=== PATIENT | female | born 1985 | race Caucasian/White ===

== ENCOUNTER 2017-02-06 07:51 | Emergency (ER) | payer OTHER ==
[2017-02-06 07:59] VITALS: BP 110/67; PULSE 73; TEMP 97.9; BMI 28.3
[2017-02-06] MEDS ORDERED: IBUPROFEN 600 MG TABLET (FP) PO ONE (08:15)
[2017-02-06] MEDS ORDERED: KETOROLAC TROMETHAMINE 60 MG/2 ML VIAL IM ONE (08:20)
[2017-02-06] MEDS ORDERED: CYCLOBENZAPRINE HCL 10 MG TABLET (FP) PO ONE (08:20)
--- NOTE | 2017-02-06 08:24 | PDOC ---
History of Present Illness - General Chief Complaint: Back Pain Stated Complaint: BACK PAIN Time Seen by Provider: 02/06/17 08:12 History Source: Patient Exam Limitations: No Limitations - History of Present Illness Initial Comments: 02/06/17 08:20 31-year-old female with no past medical history presents the ED with complaints of left upper back pain. Patient states 2 days ago awoke with the pain which she describes a sharp intermittent pain worsened with movement and deep breathing. Patient states took Motrin with no relief along with topical analgesics. Patient states no presented to the affected area, difficulty breathing, chest pain, shortness of breath, fever or chills. Patient also denies any radiation of pain, rash, or skin discoloration. Occurred: reports: other ( 2 days ago) Severity: reports: moderate Pain Location: reports: back Method of Injury: Yes: unknown Associated Symptoms (Fall): denies symptoms Past History - Travel Traveled outside of the country in the last 30 days: No Close contact w/someone who was outside of country & ill: No - Past Medical History Allergies/Adverse Reactions: Allergies Allergy/AdvReac Type Severity Reaction Status Date / Time No Known Allergies Allergy Verified 02/06/17 07:54 Home Medications: Ambulatory Orders NK [No Known Home Medication] 02/06/17 Asthma: Yes Cancer: No Cardiac Disorders: No Diabetes: No GI Disorders: Yes (gastritis) HTN: No Seizures: No Thyroid Disease: No - Reproductive History LMP Normal: Yes Is Patient Now?: No (#): 3 Para: 2 Therapeutic (s) & number: Yes Spontaneous : 1 - Psycho/Social/Smoking Cessation Hx Anxiety: No Suicidal Ideation: No Smoking Status: No Smoking History: Current every day smoker Have you smoked in the past 12 months: Yes Number of Cigarettes Smoked Daily: 1 Information on smoking cessation initiated: Yes 'Breaking Loose' booklet given: 02/06/17 Hx Alcohol Use: No Drug/Substance Use Hx: No Substance Use Type: None Hx Substance Use Treatment: No Patient Lives Alone: No Lives with/in: spouse/SO Trauma Specific PMHX - Complaint Specific PMHX Back Injury: No Review of Systems - Review of Systems Able to Perform ROS?: No Is the patient limited Chadian proficient: No Constitutional: No: Symptoms Reported Respiratory: No: Symptoms reported Cardiac (ROS): No: Symptoms Reported Musculoskeletal: Yes: Back Pain, Muscle Pain Integumentary: No: Symptoms Reported Neurological: No: Symptoms reported *Physical Exam - Vital Signs Last Vital Signs Temp Pulse Resp BP Pulse Ox 97.9 F 73 18 110/67 100 02/06/17 07:56 02/06/17 07:56 02/06/17 07:56 02/06/17 07:56 02/06/17 07:56 - Physical Exam General Appearance: Yes: Nourished, Appropriately Dressed. No: Apparent Distress Neck: positive: Supple. negative: Tender, Decreased range of motion Respiratory/Chest: positive: Lungs Clear, Normal Breath Sounds. negative: Chest Tender, Respiratory Distress, Accessory Muscle Use Cardiovascular: positive: Regular Rhythm, Regular Rate. negative: Murmur Musculoskeletal: positive: Muscle Spasm (left trapezius). negative: Vertebral Tenderness (no midline tenderness) Integumentary: positive: Normal Color, Warm, Moist Neurologic: positive: Normal Mood/Affect, Motor Strength 5/5 (ambulatory) Medical Decision Making - Medical Decision Making 02/06/17 08:23 Patient with left trapezius muscle spasm unrelieved with Motrin and topical analgesics. Patient with point tenderness to left trapezius. Patient ordered for Flexeril and Toradol IM. 02/06/17 09:22 Patient states minimal relief with medication. Patient will be given a prescription for Percocet and Flexeril for home. Patient also recommended supportive care. *DC/Admit/Observation/Transfer Diagnosis at time of Disposition: Trapezius muscle spasm - Discharge Dispostion Disposition: HOME Condition at time of disposition: Improved - Referrals Referrals: Jonathan Guevara MD [Primary Care Provider] - - Patient Instructions Printed Discharge Instructions: DI for Back Spasm Additional Instructions: Please continue to take medication as needed for discomfort. Apply heat to the affected area and avoid movements that trigger discomfort. If pain does not improve significantly over the next 3 days please consider returning to the ED or following up with her primary care physician.
[2017-02-06] MEDS ORDERED: KETOROLAC TROMETHAMINE 60 MG/2 ML VIAL ONE (08:26)
[2017-02-06] MEDS ORDERED: CYCLOBENZAPRINE HCL 10 MG TABLET (FP) ONE (08:26)
== END 2017-02-06 09:28 | disposition home or self-care (01) ==
LOC: JERFT 07:51
PROC: 3E0233Z Introduction of Anti-inflammatory into Muscle, Percutaneous Approach (ICD-10-PCS; principal; 2017-02-06)
DX: M62.830 Muscle spasm of back (principal); J45.909 Unspecified asthma, uncomplicated; F17.210 Nicotine dependence, cigarettes, uncomplicated
CPT/HCPCS: 96372; 99281-25

== ENCOUNTER 2017-02-07 18:15 | Emergency (ER) | payer OTHER ==
[2017-02-07 18:29] VITALS: BP 119/55; PULSE 72; TEMP 98.5; BMI 27.9
[2017-02-07] MEDS ORDERED: KETOROLAC TROMETHAMINE 60 MG/2 ML VIAL IM ONE (19:42)
[2017-02-07] MEDS ORDERED: KETOROLAC TROMETHAMINE 60 MG/2 ML VIAL ONE (19:44)
--- NOTE | 2017-02-07 19:47 | PDOC ---
History of Present Illness - General Chief Complaint: Pain Stated Complaint: BACK PAIN Time Seen by Provider: 02/07/17 19:35 History Source: Patient Exam Limitations: No Limitations - History of Present Illness Initial Comments: 02/07/17 19:46 31 yr female with 4 days pain to left upper back radiates to shoulder, worse with movement of her arm, worse with touch. no chest pain no sob. pt denies trauma, no recent travel, no surgery, immobilization. Pt lopez snot use any estrogenous control. no medical history. Past History - Past Medical History Allergies/Adverse Reactions: Allergies Allergy/AdvReac Type Severity Reaction Status Date / Time No Known Allergies Allergy Verified 02/07/17 18:26 Home Medications: Ambulatory Orders Cyclobenzaprine HCl [Flexeril 10 mg] 5 mg PO BID PRN #10 tablet 02/06/17 Oxycodone HCl/Acetaminophen [Percocet 5-325 mg Tablet] 1 - 2 tab PO Q6H PRN #10 tab MDD 4 02/06/17 Diazepam [Valium] 5 mg PO Q8H PRN #9 tablet MDD 15mg 02/07/17 Naproxen [Naprosyn -] 500 mg PO BID #14 tablet 02/07/17 Asthma: Yes Cancer: No Cardiac Disorders: No Diabetes: No GI Disorders: Yes (gastritis) HTN: No Seizures: No Thyroid Disease: No - Reproductive History (#): 3 Para: 2 Therapeutic (s) & number: Yes Spontaneous : 1 - Psycho/Social/Smoking Cessation Hx Anxiety: No Suicidal Ideation: No Smoking Status: No Smoking History: Never smoked Have you smoked in the past 12 months: Yes Number of Cigarettes Smoked Daily: 1 Information on smoking cessation initiated: Yes 'Breaking Loose' booklet given: 02/07/17 Hx Alcohol Use: No Drug/Substance Use Hx: No Substance Use Type: None Hx Substance Use Treatment: No *Physical Exam - Vital Signs Last Vital Signs Temp Pulse Resp BP Pulse Ox 98.5 F 72 18 119/55 100 02/07/17 18:26 02/07/17 18:26 02/07/17 18:26 02/07/17 18:26 02/07/17 18:26 - Physical Exam General Appearance: Yes: Nourished, Appropriately Dressed HEENT: positive: EOMI, LEXUS, Normal ENT Inspection, TMs Normal, Pharynx Normal Neck: positive: Supple. negative: Tender, Lymphadenopathy (R), Lymphadenopathy (L) Respiratory/Chest: positive: Lungs Clear, Normal Breath Sounds. negative: Chest Tender Cardiovascular: positive: Regular Rhythm, Regular Rate Gastrointestinal/Abdominal: positive: Normal Bowel Sounds, Soft Extremity: positive: Normal Capillary Refill, Normal Inspection, Other (left arm decreased ROM due to pain to the posteriro left shoulder at the trapezius muscle ) Integumentary: positive: Normal Color, Dry, Warm Neurologic: positive: Fully Oriented, Alert, Normal Mood/Affect, Normal Response , Motor Strength 10/22 Medical Decision Making - Medical Decision Making 02/07/17 19:43 cc: pain to the left upper back to shoulder for 4 days worse when sleeping worse with movement and to palpation pt seen in ER yesterday given toradol which pt states took pain away, then pain came back during the night. Pt denies chest pain no SOB no trouble breathing 02/07/17 19:44 Well's Criteria : 0.0 points Low risk group: 1.3% chance of PE in an ED population. Another study assigned scores = 4 as PE Unlikely and had a 3% incidence of PE. PERC ruke: 0 criteria No need for further workup, as <2% chance of PE. If no criteria are positive and clinicians pre-test probability is <15%, PERC Rule criteria are satisfied. Next Steps 02/07/17 20:50 CXR is negative pt is seeing her PMD tomorrow . will dc home with valium stop flexeril, naprosyn for pain stop percocet as it is not helping pt. *DC/Admit/Observation/Transfer Diagnosis at time of Disposition: Trapezius muscle spasm - Discharge Dispostion Disposition: HOME Condition at time of disposition: Good - Prescriptions Prescriptions: Naproxen [Naprosyn -] 500 mg PO BID #14 tablet Diazepam [Valium] 5 mg PO Q8H PRN #9 tablet MDD 15mg PRN Reason: Muscle Spasms - Referrals Referrals: Jonathan Guevara MD [Primary Care Provider] - - Patient Instructions Additional Instructions: take Valium instead of flexeril, STOP THE FLEXERIL AND PERCOCET take the naprosyn as directed for pain apply warm heating pad, warm compresses topical muscle cream such as ICy Hot or Apsercream to the affected areas Make sure you are sleeping on a firm mattress and comfortable pillow as this can make pain worse avoid any texting or using computers follow with your doctor tomorrow as planned - Post Discharge Activity
== END 2017-02-07 21:17 | disposition home or self-care (01) ==
LOC: JERFT 18:15
PROC: 3E0233Z Introduction of Anti-inflammatory into Muscle, Percutaneous Approach (ICD-10-PCS; principal; 2017-02-07)
DX: M62.838 Other muscle spasm (principal)
CPT/HCPCS: 71020-TC; 96372; 99281-25

== ENCOUNTER 2018-04-06 10:19 | Emergency (ER) | payer OTHER ==
[2018-04-06 10:24] VITALS: BP 107/62; PULSE 63; TEMP 98.5; BMI 27.4
--- NOTE | 2018-04-06 11:19 | PDOC ---
History of Present Illness - General Chief Complaint: Sore Throat Stated Complaint: COUGH, SORE THROAT Time Seen by Provider: 04/06/18 11:09 History Source: Patient Exam Limitations: Clinical Condition - History of Present Illness Initial Comments: 04/06/18 11:19 Patient with no sig Past medical history present with complain of 2 days history of nasal congestion, sinus pain, headache, cough and throat discomfort. Denies pain for to swallow now. Denies fever, chills, nausea or vomiting Timing/Duration: other (2 days) Past History - Past Medical History Allergies/Adverse Reactions: Allergies Allergy/AdvReac Type Severity Reaction Status Date / Time No Known Allergies Allergy Verified 04/06/18 10:21 Home Medications: Ambulatory Orders Azithromycin [Zithromax Tri-Kimani (3 DAYS) -] 500 mg PO DAILY #3 tablet 04/06/18 Benzonatate [Tessalon Pearls -] 100 mg PO TID PRN #21 capsule 04/06/18 Ipratropium [place] 2 spray NS BID PRN #1 spray 04/06/18 Methylprednisolone [Medrol Dose Kimani] 4 mg PO ASDIR #21 tablet 04/06/18 Asthma: Yes Cancer: No Cardiac Disorders: No COPD: No Diabetes: No GI Disorders: Yes (gastritis) HTN: No Seizures: No Thyroid Disease: No - Reproductive History (#): 3 Para: 2 Therapeutic (s) & number: Yes Spontaneous : 1 - Immunization History Immunization Up to Date: Yes - Suicide/Smoking/Psychosocial Hx Smoking Status: No Smoking History: Current every day smoker Have you smoked in the past 12 months: Yes Number of Cigarettes Smoked Daily: 10 Information on smoking cessation initiated: No 'Breaking Loose' booklet given: 02/07/17 Hx Alcohol Use: No Drug/Substance Use Hx: No Substance Use Type: None Hx Substance Use Treatment: No Review of Systems - Review of Systems Able to Perform ROS?: Yes Is the patient limited Turkmen proficient: No Constitutional: No: Chills, Fever, Malaise HEENTM: Yes: Nose Congestion, Throat Pain. No: Eye Pain, Blurred Vision, Tearing, Recent change in vision, Double Vision, Cataracts, Ear Pain, Ocular Prothesis, Ear Discharge, Nose Pain, Tinnitus, Nose Bleeding, Hearing Loss, Throat Swelling, Mouth Pain, Dental Problems, Difficulty Swallowing, Mouth Swelling, Other Respiratory: Yes: Cough. No: Orthopnea, Shortness of Breath, SOB with Exertion , SOB at Rest, Stridor, Wheezing, Productive cough, Hemoptysis, Other Cardiac (ROS): No: Chest Pain, Edema, Irregular Heart Rate, Lightheadedness, Palpitations, Syncope, Chest Tightness, Other ABD/GI: No: Abdominal Distended, Abd. Pain w/ defecation, Blood Streaked Bowels , Constipated, Diarrhea, Difficulty Swallowing, Nausea, Poor Appetite, Poor Fluid Intake, Rectal Bleeding, Vomiting, Indigestion, Abdominal cramping, Tarry Stools, Other All Other Systems: Reviewed and Negative *Physical Exam - Vital Signs Last Vital Signs Temp Pulse Resp BP Pulse Ox 98.5 F 63 18 107/62 100 04/06/18 10:21 04/06/18 10:21 04/06/18 10:21 04/06/18 10:21 04/06/18 10:21 - Physical Exam Comments: 04/06/18 11:21 GENERAL: Well developed, well nourished. Awake and alert. No acute distress. HEENT: Normocephalic, atraumatic. PERRLA, EOMI. No conjunctival pallor. Sclera are non-icteric. Moist mucous membranes. Oropharynx is clear. NECK: Supple. Full ROM. CARDIOVASCULAR: Regular rate and rhythm. No murmurs, rubs, or gallops. Distal pulses are 2+ and symmetric. PULMONARY: No evidence of respiratory distress. Lungs clear to auscultation bilaterally. No wheezing, rales or rhonchi. ABDOMINAL: Soft. Non-tender. Non-distended. No rebound or guarding. No organomegaly. Normoactive bowel sounds. MUSCULOSKELETAL Normal range of motion at all joints. EXTREMITIES: No cyanosis. No clubbing. No edema. No calf tenderness. SKIN: Warm and dry. Normal capillary refill. No rashes. No jaundice. NEUROLOGICAL: Alert, awake, appropriate. Gait is normal without ataxia. PSYCHIATRIC: Cooperative. Good eye contact. Appropriate mood General Appearance: Yes: Nourished, Appropriately Dressed. No: Apparent Distress Medical Decision Making - Medical Decision Making 04/06/18 11:22 Patient with no sig past medical history present with complain of 2 day history of nonproductive cough, nasal congestion, sinus pains, headache and throat discomfort with no pain to swallow. Symptoms likely URI with sinusitis causing pharyngitis. Patient stable for outpatient treatment PCP follow-up *DC/Admit/Observation/Transfer Diagnosis at time of Disposition: URI (upper respiratory infection) Qualifiers: URI type: unspecified URI Qualified Code(s): J06.9 - Acute upper respiratory infection, unspecified Sinusitis Qualifiers: Sinusitis location: unspecified location Chronicity: acute Recurrence: non- recurrent Qualified Code(s): J01.90 - Acute sinusitis, unspecified Pharyngitis Qualifiers: Pharyngitis/tonsillitis etiology: unspecified etiology Qualified Code(s): J02.9 - Acute pharyngitis, unspecified - Discharge Dispostion Disposition: HOME Condition at time of disposition: Stable Decision to Admit order: No - Prescriptions Prescriptions: Azithromycin [Zithromax Tri-Kimani (3 DAYS) -] 500 mg PO DAILY #3 tablet Benzonatate [Tessalon Pearls -] 100 mg PO TID PRN #21 capsule PRN Reason: Cough Ipratropium [place] 2 spray NS BID PRN #1 spray PRN Reason: nasal congestion Methylprednisolone [Medrol Dose Kimani] 4 mg PO ASDIR #21 tablet - Referrals Referrals: Jonathan Guevara MD [Primary Care Provider] - - Patient Instructions Printed Discharge Instructions: DI for Sinusitis Additional Instructions: take medications as prescribed. increase fluid intake. follow-up with primary care - Post Discharge Activity Forms/Work/School Notes: Back to Work
== END 2018-04-06 11:40 | disposition home or self-care (01) ==
LOC: JERFT 10:19
DX: J01.90 Acute sinusitis, unspecified (principal); J02.9 Acute pharyngitis, unspecified; J06.9 Acute upper respiratory infection, unspecified
CPT/HCPCS: 99281-25

== ENCOUNTER 2018-05-15 10:28 | Emergency (ER) | payer OTHER ==
[2018-05-15 10:57] VITALS: BP 112/64; PULSE 81; TEMP 98.6; BMI 26.6
--- NOTE | 2018-05-15 12:37 | PDOC ---
History of Present Illness - General Chief Complaint: Injury Stated Complaint: INJURY TO FINGER Time Seen by Provider: 05/15/18 12:00 - History of Present Illness Initial Comments: 05/15/18 12:32 32-year-old female without comorbidities presents for evaluation of a laceration on her left hand. She states she was being mild last night at about 3 or 4 AM in the morning and sustained a laceration. She is current on tetanus without comorbidities 05/15/18 13:08 Past History - Past Medical History Allergies/Adverse Reactions: Allergies Allergy/AdvReac Type Severity Reaction Status Date / Time No Known Allergies Allergy Verified 05/15/18 10:53 Home Medications: Ambulatory Orders Azithromycin [Zithromax Tri-Kimani (3 DAYS) -] 500 mg PO DAILY #3 tablet 04/06/18 Benzonatate [Tessalon Pearls -] 100 mg PO TID PRN #21 capsule 04/06/18 Ipratropium [place] 2 spray NS BID PRN #1 spray 04/06/18 Methylprednisolone [Medrol Dose Kimani] 4 mg PO ASDIR #21 tablet 04/06/18 Asthma: Yes Cancer: No Cardiac Disorders: No COPD: No Diabetes: No GI Disorders: Yes (gastritis) HTN: No Seizures: No Thyroid Disease: No - Reproductive History (#): 3 Para: 2 Therapeutic (s) & number: Yes Spontaneous : 1 - Immunization History Immunization Up to Date: Yes - Suicide/Smoking/Psychosocial Hx Smoking Status: No Smoking History: Current every day smoker Have you smoked in the past 12 months: Yes Number of Cigarettes Smoked Daily: 10 Information on smoking cessation initiated: No 'Breaking Loose' booklet given: 02/07/17 Hx Alcohol Use: No Drug/Substance Use Hx: No Substance Use Type: None Hx Substance Use Treatment: No Review of Systems - Review of Systems Musculoskeletal: Yes: See HPI *Physical Exam - Vital Signs Last Vital Signs Temp Pulse Resp BP Pulse Ox 98.6 F 81 16 112/64 99 05/15/18 10:52 05/15/18 10:52 05/15/18 10:52 05/15/18 10:52 05/15/18 10:52 - Physical Exam Comments: 05/15/18 12:32 left hand skin color and temperature are normal there is a subcentimeter laceration on the volar aspect of the skin overlying the fifth MCPJ. She is unable to flex her MCP J PIPJ or DIPJ of the fourth and fifth finger there is a small amount of subcutaneous fat exposed at the fifth MCP J there is a small superficial aspiration on the fourth MCP J skin 05/15/18 13:08 ED Treatment Course - RADIOLOGY Radiology Studies Ordered: Category Date Time Status HAND- LEFT [RAD] Stat Radiology 05/15/18 11:49 Completed Medical Decision Making - Medical Decision Making 05/15/18 12:35 X-rays of the hand show no evidence of fracture. 05/15/18 13:09 Under aseptic technique, 3 mL of 1% lidocaine without epinephrine was introduced into the area of the laceration. The wound was explored to his base in a bloodless field, there was no foreign body. The wound was copiously irrigated with normal saline edges approximated and held together with 2 simple 4-0 nylon sutures a dry sterile dressing was placed. This was tolerated well *DC/Admit/Observation/Transfer Diagnosis at time of Disposition: Laceration of hand with tendon involvement - Discharge Dispostion Disposition: HOME Condition at time of disposition: Stable Decision to Admit order: No - Referrals Referrals: Jonathan Guevara MD [Primary Care Provider] - Jonathan Antunez MD [Staff Physician] - - Patient Instructions Printed Discharge Instructions: DI for Laceration Repair Additional Instructions: Return to the emergency room should there be any redness swelling drainage or increasing pain around her wound. Keep the area clean and dry for the next 48 hours after which he may wash with soap and water. Leave it opened air. Follow- up with hand surgery in one to 2 days for further evaluation and treatment options. There is a good chance she may have transected the flexor tendon and it may require surgical repair - Post Discharge Activity
== END 2018-05-15 13:13 | disposition home or self-care (01) ==
LOC: JERFT 10:28
PROC: 0JQK0ZZ Repair Left Hand Subcutaneous Tissue and Fascia, Open Approach (ICD-10-PCS; principal; 2018-05-15)
DX: S61.412A Laceration without foreign body of left hand, initial encounter (principal); S66.892A Other injury of other specified muscles, fascia and tendons at wrist and hand level, left hand, initial encounter; X99.8XXA Assault by other sharp object, initial encounter; Y93.89 Activity, other specified; Y92.89 Other specified places as the place of occurrence of the external cause
CPT/HCPCS: 12001; 73130-TC-LT-FY; 99281-25

== ENCOUNTER 2020-04-28 11:59 | Emergency (ER) | payer OTHER ==
[2020-04-28 12:24] VITALS: BP 110/59; PULSE 61; TEMP 98.1; BMI 25.7
== END 2020-04-28 13:15 | disposition home or self-care (01) ==
LOC: JERFT 11:59
DX: R05 Cough (principal)
CPT/HCPCS: 71046-TC-FY; 93005; 93010; 99284-25

== ENCOUNTER 2020-07-05 15:55 | Emergency (ER) | payer OTHER ==
[2020-07-05 16:16] VITALS: BP 115/54; PULSE 97; TEMP 97.8; BMI 26.6
[2020-07-05] MEDS ORDERED: NAPROXEN 500 MG TABLET PO ONE (17:40)
[2020-07-05] MEDS ORDERED: BACITRACIN 15 GM TUBE TOPICAL OINTMENT TP ONE (17:41)
[2020-07-05] MEDS ORDERED: BACITRACIN 15 GM TUBE TOPICAL OINTMENT ONE (17:45)
[2020-07-05] MEDS ORDERED: NAPROXEN 500 MG TABLET ONE (17:45)
== END 2020-07-05 17:47 | disposition home or self-care (01) ==
LOC: JER 15:55 → JERFT 15:55
DX: S40.211A Abrasion of right shoulder, initial encounter (principal)
CPT/HCPCS: 99284-25

== ENCOUNTER 2021-06-18 09:49 | Emergency (ER) | payer OTHER ==
[2021-06-18 09:59] VITALS: BP 110/71; PULSE 60; TEMP 98.3; BMI 28.3
[2021-06-18] MEDS ORDERED: KETOROLAC TROMETHAMINE 30 MG/1 ML VIAL ONE (10:49)
[2021-06-18] MEDS ORDERED: KETOROLAC TROMETHAMINE 30 MG/1 ML VIAL IM ONE (10:49)
[2021-06-19 17:07] LABS: SARS-CoV-2 NAA Detected (Not Detected)
== END 2021-06-18 11:32 | disposition home or self-care (01) ==
LOC: JCOVINFU 09:49
PROC: 3E023GC Introduction of Other Therapeutic Substance into Muscle, Percutaneous Approach (ICD-10-PCS; principal; 2021-06-18)
DX: N61.0 Mastitis without abscess (principal); B34.9 Viral infection, unspecified
CPT/HCPCS: 87804; 99284-25; C9803; U0003; U0005

== ENCOUNTER 2021-11-11 04:22 | Day surgery (SDC) | payer OTHER ==
[2021-11-06 13:23] VITALS: BMI 28.3
[2021-11-11] MEDS ORDERED: LIDOCAINE 1%/EPI 1:100000 (20 ML MULTI DOSE VIAL) ONE (13:06)
[2021-11-11] MEDS ORDERED: BUPIVACAINE HCL/PF 0.5% (5MG/ML) 10 ML VIAL ONE (13:06)
[2021-11-11] MEDS ORDERED: PROPOFOL 20 ML ONE ×6 (13:35)
[2021-11-11] MEDS ORDERED: DEXAMETHASONE SOD PHOSPHATE 4 MG/1 ML VIAL ONE (13:35)
[2021-11-11] MEDS ORDERED: LIDOCAINE HCL 2% 100 MG/5 ML DISP.SYRIN ONE (13:35)
[2021-11-11] MEDS ORDERED: KETOROLAC TROMETHAMINE 30 MG/1 ML VIAL ONE (13:35)
[2021-11-11] MEDS ORDERED: FENTANYL CITRATE/PF 50 MCG/ML VIAL ONE (13:36)
[2021-11-11] MEDS ORDERED: MIDAZOLAM HCL 2 MG/2 ML SINGLE DOSE VIAL ONE (13:37)
[2021-11-11] MEDS ORDERED: BUPIVACAINE HCL/PF 0.5% (5MG/ML) 10 ML VIAL IJ ONE (13:40)
[2021-11-11] MEDS ORDERED: ceFAZolin SODIUM 1 GM VIAL ONE (13:49)
[2021-11-11] MEDS ORDERED: HYDROmorphone HCl 2 MG/ML VIAL ONE (13:57)
[2021-11-11] MEDS ORDERED: LIDOCAINE HCL 0.5%, 5 MG/1 ML (50mL MDV) INF ONE (13:58)
[2021-11-11] MEDS ORDERED: LIDOCAINE HCL 1%, 10 MG/ML (20ML VIAL) INF ONE (13:58)
[2021-11-11] MEDS ORDERED: LIDOCAINE HCL 0.5%, 5 MG/ML (50mL SDVIAL) NR ONE (14:00)
[2021-11-11] MEDS ORDERED: BENZOIN/ALOE VERA/STORAX/TOLU 58 ML BOTTLE ONE (14:14)
[2021-11-11 16:13] VITALS: BP 112/58; PULSE 60; TEMP 97.9
== END 2021-11-11 15:40 | disposition home or self-care (01) ==
LOC: JASU-SURG 04:22
PROVIDERS: ATTEND Surgery Surgical Oncology
PROC: 0HBT0ZX Excision of Right Breast, Open Approach, Diagnostic (ICD-10-PCS; principal; 2021-11-11 13:00)
DX: N61.1 Abscess of the breast and nipple (principal); B95.2 Enterococcus as the cause of diseases classified elsewhere
CPT/HCPCS: 87070; 87075; 87076; 87102; 87116; 87186; 87205; 87206; 87210

== ENCOUNTER 2022-03-14 07:45 | Emergency (ER) | payer OTHER ==
[2022-03-14 08:00] VITALS: RESP 18; BMI 31.8
[2022-03-14 08:36] LABS: EPI CELLS >36 /uL (0-25.1); HYALINE CASTS 1 /uL (0-3.1); URINE APPEARANCE CLEAR; URINE BACTERIA 1772 /uL (0-1359); URINE BILIRUBIN NEGATIVE (NEGATIVE); URINE COLOR YELLOW; URINE GLUCOSE (UA) NEGATIVE (NEGATIVE); URINE KETONE NEGATIVE (NEGATIVE); URINE LEUK ESTERASE TRACE (NEGATIVE); URINE NITRITE NEGATIVE (NEGATIVE); URINE PROTEIN NEGATIVE (NEGATIVE); URINE RBC 9 /uL (0-23.9); URINE UROBILINOGEN 0.2 mg/dL (0.2-1.0); URINE WBC 48 /uL (0-25.8)
[2022-03-14 10:27] VITALS: BP 110/65; PULSE 87; TEMP 98.1
== END 2022-03-14 09:30 | disposition home or self-care (01) ==
LOC: JER 07:45
DX: Z34.92 Encounter for supervision of normal pregnancy, unspecified, second trimester (principal); Z3A.17 17 weeks gestation of pregnancy
CPT/HCPCS: 76801-TC; 81003; 87086; 99284-25

== ENCOUNTER 2022-08-18 05:55 | Inpatient (IN) | payer OTHER ==
[2022-08-18] MEDS ORDERED: ELECTROLYTE-148 SOLN 500 ML IV ONE (06:30)
[2022-08-18] MEDS ORDERED: CITRIC ACID/SODIUM CITRATE 30 ML UNIT-DOSE CUP PO ONE ×2 (06:30→08:17)
[2022-08-18 07:03] VITALS: BMI 36.3
[2022-08-18] MEDS: ELECTROLYTE-148 SOLN 1,000 ML IV SCH ×2 (07:03→07:50)
[2022-08-18] MEDS ORDERED: ACETAMINOPHEN 325 MG TABLET (FP) PO PRN (08:07)
[2022-08-18] MEDS ORDERED: IBUPROFEN 600 MG TABLET (FP) PO PRN (08:07)
[2022-08-18] MEDS ORDERED: ONDANSETRON 4 MG/2 ML VIAL IVPUSH PRN (08:07)
[2022-08-18] MEDS ORDERED: ELECTROLYTE-148 SOLN 1,000 ML IV SCH (08:30)
[2022-08-18] MEDS ORDERED: PHENYLEPHRINE HCL 10 MG/1 ML SINGLE DOSE VIAL ONE (08:55)
[2022-08-18] MEDS ORDERED: morphine SULFATE (PF) 1 MG/2 ML SYRINGE ONE (08:55)
[2022-08-18] MEDS ORDERED: ePHEDrine SULFATE 50 MG/1 ML AMPULE ONE (09:10)
[2022-08-18] MEDS ORDERED: MIDAZOLAM HCL 2 MG/2 ML SINGLE DOSE VIAL ONE ×2 (09:32→09:48)
[2022-08-18 09:42] LABS: COCAINE, UR NEGATIVE (NEGATIVE)
[2022-08-18 09:43] LABS: METHADONE, UR NEGATIVE (NEGATIVE); OPIATES, URI NEGATIVE (NEGATIVE); URINE BARBITURATES NEGATIVE (NEGATIVE); URINE BENZODIAZEPINES NEGATIVE (NEGATIVE)
[2022-08-18 09:49] LABS: PHENCYCLIDINE,URINE NEGATIVE (NEGATIVE)
[2022-08-18 09:55] LABS: URINE AMPHETAMINES NEGATIVE (NEGATIVE)
[2022-08-18] MEDS ORDERED: ceFAZolin SODIUM 1 GM VIAL ONE ×2 (10:10)
[2022-08-18] MEDS ORDERED: OXYTOCIN 10 UNITS/ML VIAL ONE ×4 (10:10)
[2022-08-18] MEDS ORDERED: METHYLERGONOVINE MALEATE 0.2 MG/1 ML AMP IM PRN (10:19)
[2022-08-18] MEDS ORDERED: ACETAMINOPHEN INJECTION 100 ML IVPB ONE (10:37)
[2022-08-18] MEDS ORDERED: OXYTOCIN 20 UNITS in 0.9% NS 20 UNIT/1,000 ML INFUS.BAG IV ONE (13:29)
[2022-08-18] MEDS: OXYTOCIN 20 UNITS in 0.9% NS 20 UNIT/1,000 ML INFUS.BAG IV SCH ×2 (13:30→23:47)
[2022-08-18] MEDS ORDERED: ACETAMINOPHEN 1000 MG/100 ML BAG IVPB ONE (13:53)
[2022-08-18] MEDS ORDERED: IBUPROFEN 800 MG/8 ML IJ IVPB ONE (13:54)
[2022-08-18] MEDS ORDERED: metroNIDAZOLE 500 MG TABLET PO ONE (16:52)
[2022-08-18] MEDS: ACETAMINOPHEN 1000 MG/100 ML BAG IVPB SCH ×2 (17:03→22:42)
[2022-08-18] MEDS: IBUPROFEN 800 MG/8 ML IJ IVPB SCH (18:09)
[2022-08-18] MEDS ORDERED: oxyCODONE HCL 5 MG TABLET PO PRN (22:19)
[2022-08-18] MEDS: SIMETHICONE 80 MG TAB.CHEW (FP) PO PRN (22:42)
[2022-08-19] MEDS: IBUPROFEN 800 MG/8 ML IJ IVPB SCH ×3 (01:40→18:00)
[2022-08-19] MEDS: ACETAMINOPHEN 1000 MG/100 ML BAG IVPB SCH ×3 (04:46→16:56)
[2022-08-19] MEDS: SIMETHICONE 80 MG TAB.CHEW (FP) PO PRN ×3 (04:47→18:16)
[2022-08-19 09:04] LABS: BASO % 0.3 % (0-2.0); EOS % 0.3 % (0-4.5); HEMATOCRIT 35.5 % (32.4-45.2); HEMOGLOBIN 11.9 GM/dL (10.7-15.3); LYMPH % 10.1 % (8-40); MCHC 33.6 g/dl (32.0-36.0); MEAN CELL VOLUME 95.1 fl (80-96); MEAN PLT VOLUME 9.3 fl (7.5-11.1); MONO % 6.4 % (3.8-10.2); NEUT % 82.9 % (42.8-82.8); PLATELET COUNT 194 10^3/uL (134-434); RBC 3.73 M/mm3 (3.60-5.2); RDW 13.3 % (11.6-15.6); WHITE BLOOD COUNT 10.9 K/mm3 (4.0-10.0)
[2022-08-19] MEDS ORDERED: DIPHTH,PERTUSS(ACELL),TET 0.5 ML DISP.SYRIN IM ONE (10:00)
[2022-08-19] MEDS ORDERED: BISACODYL 10 MG SUPP.RECT RC PRN (10:19)
[2022-08-19] MEDS: oxyCODONE HCL 5 MG TABLET PO PRN (12:43)
[2022-08-19] MEDS ORDERED: LORazepam 0.5 MG TABLET PO ONE ×2 (18:36→19:30)
[2022-08-20] MEDS: oxyCODONE HCL 5 MG TABLET PO PRN ×2 (00:45→14:53)
[2022-08-20] MEDS: IBUPROFEN 800 MG/8 ML IJ IVPB SCH ×2 (02:41→10:16)
[2022-08-20] MEDS ORDERED: ACETAMINOPHEN 500 MG TABLET (FP) PO PRN (10:26)
[2022-08-20] MEDS: SIMETHICONE 80 MG TAB.CHEW (FP) PO PRN (11:23)
[2022-08-20 15:38] VITALS: BP 123/54; PULSE 68; RESP 17; TEMP 98.6
== END 2022-08-20 18:00 | disposition home or self-care (01) | DRG 540 ==
LOC: JLDR 05:55 → J3W 13:55
PROVIDERS: ADMIT Obstetrics & Gynecology; ATTEND Obstetrics & Gynecology
PROC: 10D00Z1 Extraction of Products of Conception, Low, Open Approach (ICD-10-PCS; principal; 2022-08-18)
DX: O34.211 Maternal care for low transverse scar from previous cesarean delivery (principal); O99.344 Other mental disorders complicating childbirth; F41.9 Anxiety disorder, unspecified; N32.89 Other specified disorders of bladder; Z3A.39 39 weeks gestation of pregnancy; Z37.0 Single live birth
CPT/HCPCS: 36415; 80053; 80307; 85025; 85027; 85610; 85730; 86780; 86850; 86900; 86901; 87389; 88307-TC; C9803-CS; U0003; U0005

== ENCOUNTER 2024-04-04 09:27 | Emergency (ER) | payer OTHER ==
[2024-04-04 09:36] VITALS: BP 113/53; PULSE 82; RESP 20; TEMP 98.1; BMI 29.2
[2024-04-04] MEDS ORDERED: ACETAMINOPHEN 500 MG TABLET (FP) ONE (10:19)
[2024-04-04] MEDS ORDERED: LIDOCAINE 4% PATCH TP ONE (10:19)
[2024-04-04] MEDS: ACETAMINOPHEN 500 MG TABLET (FP) PO ONE (10:23)
[2024-04-04] MEDS: LIDOCAINE 4% PATCH TP ONE (10:23)
[2024-04-04 10:36] LABS: EPI CELLS 32 /uL (0-25.1); HYALINE CASTS 2 /uL (0-3.1); URINE APPEARANCE CLEAR; URINE BACTERIA >9,000 /uL (0-1359); URINE BILIRUBIN NEGATIVE (NEGATIVE); URINE COLOR YELLOW; URINE GLUCOSE (UA) NEGATIVE (NEGATIVE); URINE KETONE NEGATIVE (NEGATIVE); URINE LEUK ESTERASE NEGATIVE (NEGATIVE); URINE NITRITE POSITIVE (NEGATIVE); URINE PROTEIN NEGATIVE (NEGATIVE); URINE RBC 12 /uL (0-23.9); URINE UROBILINOGEN 0.2 mg/dL (0.2-1.0); URINE WBC 19 /uL (0-25.8)
[2024-04-04] MEDS ORDERED: LIDOCAINE PATCH REMOVAL MC SCH (22:00)
== END 2024-04-04 11:53 | disposition home or self-care (01) ==
LOC: JERFT 09:27
DX: O26.891 Other specified pregnancy related conditions, first trimester (principal); M54.50 Low back pain, unspecified; O23.41 Unspecified infection of urinary tract in pregnancy, first trimester; Z3A.11 11 weeks gestation of pregnancy
CPT/HCPCS: 81003; 87086; 87186; 99283-25

== ENCOUNTER 2024-10-10 05:00 | Inpatient (IN) | payer OTHER ==
[2024-10-10 06:26] VITALS: BMI 35.2
[2024-10-10] MEDS: ELECTROLYTE-148 SOLN 1,000 ML IV SCH (07:00)
[2024-10-10 07:05] LABS: BASOPHILS # 0.03 x10^3/uL (0.01-0.08); EOSINOPHIL % 0.6 % (0.7-5.8); EOSINOPHILS # 0.05 x10^3/uL (0.04-0.36); HEMATOCRIT 36.6 % (34.1-44.9); HEMOGLOBIN 12.3 g/dL (11.2-15.7); MCHC 33.6 g/dl (32.2-35.5); MEAN CELL VOLUME 96.1 fl (79.4-94.8); MEAN PLT VOLUME 11.7 fl (9.4-12.3); MONOCYTE # 0.54 x10^3/uL (0.24-0.86); PLATELET COUNT 202 x10^3/uL (182-369)
[2024-10-10 07:33] LABS: POTASSIUM 4.1 mmol/L (3.5-5.1)
[2024-10-10 07:38] LABS: CREATININE 0.5 mg/dL (0.55-1.3)
[2024-10-10] MEDS: CITRIC ACID/SODIUM CITRATE 30 ML UNIT-DOSE CUP PO ONE (07:45)
[2024-10-10 07:53] LABS: INR 0.94 (0.83-1.09)
[2024-10-10 07:56] LABS: ACTIVATED PTT 29.6 SECONDS (25.2-36.5)
[2024-10-10 07:57] LABS: PROTHROMBIN TIME (PATIENT) 10.3 SEC (9.7-13.0)
[2024-10-10] MEDS ORDERED: FENTANYL CITRATE/PF 50 MCG/ML VIAL ONE (08:07)
[2024-10-10] MEDS ORDERED: morphine SULFATE/PF 1 MG/2 ML (2cc Syringe - QUVA) ONE (08:07)
[2024-10-10] MEDS ORDERED: LIGASURE IMPACT TP ONE (09:25)
[2024-10-10] MEDS ORDERED: OXYTOCIN 10 UNITS/ML VIAL ONE (09:32)
[2024-10-10] MEDS ORDERED: SUCCINYLCHOLINE CHLORIDE 200 MG/10 ML SYRINGE ONE (09:37)
[2024-10-10] MEDS ORDERED: PROPOFOL 20 ML ONE (09:37)
[2024-10-10] MEDS ORDERED: BUPIVACAINE HCL/PF 0.5% (5MG/ML) 10 ML VIAL ONE (10:11)
[2024-10-10 10:40] LABS: CORD BASE EXCESS -7.2 mmol/L (0-2); CORD HCO3 22.1 mmHg (20-29); CORD PCO2 58.3 mmHg (30-78); CORD pH 7.196 (7.14-7.44)
[2024-10-10 10:51] LABS: CORD BASE EXCESS -2.7 mmol/L (0-2); CORD PCO2 48.4 mmHg (30-78); CORD pH 7.314 (7.14-7.44)
[2024-10-10] MEDS: OXYTOCIN 20 UNITS in 0.9% NS 20 UNIT/1,000 ML INFUS.BAG IV SCH (11:00)
[2024-10-10] MEDS ORDERED: OXYTOCIN 20 UNITS in 0.9% NS 20 UNIT/1,000 ML INFUS.BAG IV ONE (11:50)
[2024-10-10] MEDS ORDERED: TRANEXAMIC ACID 1000 MG/10 ML VIAL ONE (12:22)
[2024-10-10] MEDS: METHYLERGONOVINE MALEATE 0.2 MG/1 ML AMP IM PRN (12:28)
[2024-10-10] MEDS: TRANEXAMIC ACID 1000 MG/10 ML VIAL IVPB ONE (12:30)
[2024-10-10] MEDS ORDERED: ACETAMINOPHEN INJECTION 100 ML ONE (13:06)
[2024-10-10] MEDS: ACETAMINOPHEN 1000 MG/100 ML BAG IVPB ONE (13:10)
[2024-10-10] MEDS: IBUPROFEN (CALDOLOR) 800 MG/200 ML PREMIX BAGS IVPB ONE (21:36)
[2024-10-11] MEDS: IBUPROFEN (CALDOLOR) 800 MG/200 ML PREMIX BAGS IVPB ONE (03:04)
[2024-10-11] MEDS: IBUPROFEN 600 MG TABLET (FP) PO PRN (06:02)
[2024-10-11] MEDS: SIMETHICONE 80 MG TAB.CHEW (FP) PO PRN (06:02)
[2024-10-11 07:56] LABS: BASOPHILS # 0.03 x10^3/uL (0.01-0.08); EOSINOPHIL % 0.7 % (0.7-5.8); EOSINOPHILS # 0.08 x10^3/uL (0.04-0.36); HEMATOCRIT 22.2 % (34.1-44.9); HEMOGLOBIN 7.2 g/dL (11.2-15.7); MCHC 32.4 g/dl (32.2-35.5); MEAN CELL VOLUME 99.6 fl (79.4-94.8); MEAN PLT VOLUME 11.7 fl (9.4-12.3); MONOCYTE # 0.93 x10^3/uL (0.24-0.86); MONOCYTE % 8.5 % (4.7-12.5); PLATELET COUNT 166 x10^3/uL (182-369); RDW 13.6 % (12.1-16.8)
[2024-10-11] MEDS: PRENATAL VITAMINS W/ FOLIC ACID TABLET (FP) PO SCH (09:42)
[2024-10-11] MEDS: ACETAMINOPHEN 325 MG TABLET (FP) PO PRN (09:42)
[2024-10-11] MEDS: FERROUS SO4 325 MG TABLET (FP) PO SCH (18:12)
[2024-10-11] MEDS: oxyCODONE HCL 5 MG TABLET PO PRN (19:24)
[2024-10-11] MEDS: IRON SUCROSE INJECTION 200 MG in SODIUM CHLORIDE 90 ML IVPB ONE (19:26)
[2024-10-11] MEDS: BISACODYL 10 MG SUPP.RECT RC PRN (20:55)
[2024-10-12 08:16] LABS: BASOPHILS # 0.03 x10^3/uL (0.01-0.08); EOSINOPHIL % 0.4 % (0.7-5.8); EOSINOPHILS # 0.05 x10^3/uL (0.04-0.36); HEMOGLOBIN 7.5 g/dL (11.2-15.7); MCHC 32.6 g/dl (32.2-35.5); MEAN PLT VOLUME 10.9 fl (9.4-12.3); MONOCYTE # 0.71 x10^3/uL (0.24-0.86); MONOCYTE % 6.3 % (4.7-12.5); PLATELET COUNT 207 x10^3/uL (182-369); RDW 13.8 % (12.1-16.8)
[2024-10-12] MEDS: IRON SUCROSE INJECTION 200 MG in SODIUM CHLORIDE 100 ML IVPB ONE (11:31)
[2024-10-12] MEDS: WITCH HAZEL 50% (TUCKS) 40 PAD/JAR PAD TP ONE (17:55)
[2024-10-13 08:15] LABS: BASOPHILS # 0.01 x10^3/uL (0.01-0.08); EOSINOPHIL % 1.2 % (0.7-5.8); HEMATOCRIT 20.3 % (34.1-44.9); HEMOGLOBIN 6.5 g/dL (11.2-15.7); MEAN PLT VOLUME 10.7 fl (9.4-12.3); MONOCYTE # 0.59 x10^3/uL (0.24-0.86); MONOCYTE % 7.1 % (4.7-12.5); PLATELET COUNT 205 x10^3/uL (182-369); RDW 13.7 % (12.1-16.8)
[2024-10-13 09:22] VITALS: BP 105/52; PULSE 73; RESP 17; TEMP 99.2
== END 2024-10-13 11:30 | disposition home or self-care (01) | DRG 540 ==
LOC: JLDR 05:00 → J3W 13:45
PROVIDERS: ADMIT Obstetrics & Gynecology; ATTEND Obstetrics & Gynecology
PROC: 10D00Z1 Extraction of Products of Conception, Low, Open Approach (ICD-10-PCS; principal; 2024-10-10)
PROC: 0UB70ZZ Excision of Bilateral Fallopian Tubes, Open Approach (ICD-10-PCS; 2024-10-10)
DX: O34.218 Maternal care for other type scar from previous cesarean delivery (principal); N85.8 Other specified noninflammatory disorders of uterus; O99.02 Anemia complicating childbirth; Z3A.38 38 weeks gestation of pregnancy; Z30.2 Encounter for sterilization; Z37.0 Single live birth
CPT/HCPCS: 36415; 36600; 59409; 80048; 82803; 85025; 85610; 85730; 86780; 86850; 86900; 86901; 88305-TC; 88307-TC; 94010; J0131; J1756